=== PATIENT | male | born 1940 | race Caucasian/White ===

== ENCOUNTER → 2016-11-15 | Outpatient (CLI) | payer OTHER | LOC: BHFA 11:30 | PROVIDERS: ATTEND Internal Medicine Cardiovascular Disease | DX: I34.0 Nonrheumatic mitral (valve) insufficiency (principal) ==

== ENCOUNTER → 2016-11-25 | Outpatient (CLI) | payer OTHER | LOC: BHFA 14:45 | PROVIDERS: ATTEND Internal Medicine Cardiovascular Disease | DX: R42 Dizziness and giddiness (principal) ==

== ENCOUNTER 2017-02-28 14:30 | Emergency (ER) | payer OTHER ==
[2017-02-28 14:42] VITALS: TEMP 97.9
--- NOTE | 2017-02-28 15:56 | EDPHY ---
H & P Stated Complaint: On going weakness and dizziness, getting worse. Time Seen by Provider: 02/28/17 15:53 HPI/ROS: CHIEF COMPLAINT:Weakness, dizzy HISTORY OF PRESENT ILLNESS: The patient is an anticoagulated 76 y/o male with history of atrial fibrillation status post ablation complaining of weakness and dizziness. His dizziness is not new but seems to be worse recently. These symptoms have happened in the past--while hiking several years ago, but symptoms of decreased energy and dizziness improved after 20 minutes of hiking. One month ago he discontinued Propafenone and a prostate medication (name unknown) because of his dizziness, which began to improve. This dizziness begins after standing up and is associated with feeling off balance. The symptoms last around 2-3 minutes and he sits down when they begin. Delete On Tuesday, 2 days from now , he has an appointment with a parking lot manager at [facility]. Denies fever, chest pain, shortness of breath, vomiting, persistent diarrhea or blood in stool, recent illness or other pertinent symptoms. He has not been aware of atrial fibrillation or abnormal cardiac activity for the past couple of years. His ablation procedure was performed in 2005. REVIEW OF SYSTEMS: A ten point review of systems was performed and is negative with the exception of the items mentioned in the HPI. Right jaw weakness, not pain. Mild diarrhea. Past medical history: Atrial fibrillation Chronic weakness and dizziness. Fractured left clavicle Past surgical history: Ablation - 2005 C1 fusion C6-7 anterior discectomy and fusion Family history: Denies Social history: at bedside Lives in [place] Retired General Appearance: Alert. Vital signs reviewed. Blood pressure 90/63 at triage. Eyes: Pupils equal and round, no conjunctival injection, no discharge. Anicteric. ENT, Mouth: Mucous membranes are moist, no oropharyngeal erythema or edema. Neck: No lymphadenopathy, supple. Respiratory: Lungs are clear to auscultation; no wheezes, rales, or rhonchi. Cardiovascular: Irregularly irregular; no murmur, rub, or gallop. Gastrointestinal: Abdomen is soft and nontender, no masses or organomegaly, bowel sounds normal. Skin: Warm and dry, no rashes on exposed skin, normal color. Back: Nontender to palpation over the thoracolumbar spine. No CVAT. Extremities: No lower extremity edema, no calf tenderness or swelling. Neurological: Alert and oriented. Moving all four extremities easily and equally. DEVEN. EOMI. Facial expression symmetric. Tongue midline. Strength 5/5 in all major motor groups. Sensation intact to light touch over all 4 extremities. Psychiatric: Normal affect. - Personal History Current Tetanus Diphtheria and Acellular Pertussis (TDAP): Yes Tetanus Vaccine Date: 2014 - Medical/Surgical History Hx Asthma: No Hx Chronic Respiratory Disease: No Hx Diabetes: No Hx Cardiac Disease: Yes Hx Renal Disease: No Hx Cirrhosis: No Hx Alcoholism: No Hx HIV/AIDS: No Hx Splenectomy or Spleen Trauma: No Other PMH: Ablation - 2006. A - Fib. Chronic weakness and dizziness. - Social History Smoking Status: Former smoker Constitutional: Initial Vital Signs Temperature (C) 36.6 C 02/28/17 14:36 Heart Rate 95 02/28/17 14:36 Respiratory Rate 16 02/28/17 14:36 Blood Pressure 90/63 L 02/28/17 14:36 O2 Sat (%) 95 02/28/17 14:36 O2 Delivery Mode Room Air Allergies/Adverse Reactions: No Known Allergies Allergy (Unverified 11/09/09 12:25) Home Medications: Medication Instructions Recorded FISH OIL 1,000 MG SOFTGEL 11/09/09 Prozac 11/09/09 RYTHMOL 11/09/09 Statins 11/09/09 Vitamins And Minerals 11/09/09 Warfarin Sodium 02/28/17 Medical Decision Making - Diagnostics Imaging: I viewed and interpreted images myself ED Course/Re-evaluation: The patient is an anticoagulated 76 y/o male with a history of atrial fibrillation presenting with weakness. He is in atrial fibrillation, other than this his physical exam is normal. 1610: The 12 lead EKG was interpreted by myself as atrial fibrillation with a rate of 106. See hard copy and/or "tracemaster" electronic copy for interpretation. 1718: Patient's chest x-ray is negative for acute pulmonary disease. 9: Reassessed patient and discussed imaging findings. He is still feeling lightheaded and weak. Labs reviewed. Normal troponin, I doubt ACS. INR is 2.5. 1905: Consulted with Dr. Partida, parking lot manager, regarding the patient's symptoms. He will inform Dr. Delvalle, the patient's parking lot manager, and she will contact the patient. Patient is not interested in hospitalization. He is surprised to learn that he is in atrial fibrillation. His Rhythmol was stopped about a month ago and may need to be reinstituted. A fib in the ED does not show RVR. INR is 2.5. Electrolytes are normal. He is comfortable following up with his parking lot manager in [place] and has an appointment with a parking lot manager at [facility] next week. Danger signs reviewed with the patient and his . Repeat blood pressures show his lowest blood pressure since triage was 115/87 with the blood pressure at discharge of 05/03 over 75. His systolic pressure on arrival was 90. He states that his blood pressure is chronically on the low side. I do not find evidence of significant dehydration and not suspect blood loss. 191: Reassessed patient and discussed plan for an outpatient follow up with his parking lot manager. Return precautions provided; patient and his are comfortable with this plan. Differential Diagnosis: ED AFib differential - Data Points Laboratory Results: Laboratory Results 02/28/17 16:14 02/28/17 16:14 Departure - Departure Disposition: Home, Routine, Self-Care Clinical Impression: Atrial fibrillation Qualifiers: Atrial fibrillation type: unspecified Qualified Code(s): I48.91 - Unspecified atrial fibrillation Condition: Good Instructions: A-fib (Atrial Fibrillation) (ED) Additional Instructions: Dr. Delvalle, parking lot manager, will contact you regarding your symptoms and visit today. No medication changes or additions are recommended at this time. Keep your appointment at [facility] on . Return to the Emergency Department for fever, chest pain, shortness of breath, fainting, or other worsening of condition. Referrals: Lisa Smith MD [Primary Care Provider] - As per Instructions Carin Delvalle MD [Medical Doctor] - As per Instructions Report Scribed for: Mari Jimenez Report Scribed by: Sadia Gillis Date of Report: 02/28/17 Time of Report: 16:29 Physician Review and Approval Statement: 02/28/17 15:56 Portions of this note were transcribed by the medical insurance claims specialist. I, Dr. Mari Jimenez, personally performed the history, physical exam, and medical decision- making; and confirmed the accuracy of the information in the transcribed note.
--- NOTE | 2017-02-28 16:11 | CPEKG ---
Heart Rate: 106 RR Interval: 566 QRSD Interval: 108 QT Interval: 384 QTC Interval: 510 QRS [place]: -102 T Wave [place]: 9 EKG Severity - ABNORMAL ECG - EKG Impression: ATRIAL FIBRILLATION EKG Impression: LAD, CONSIDER LEFT ANTERIOR FASCICULAR BLOCK EKG Impression: LOW VOLTAGE IN FRONTAL LEADS Electronically Signed By: Germain Soriano 01-Mar-2017 15:43:07
[2017-02-28 16:27] LABS: % IMMATURE GRANULYOCYTES 0.2 % (0.0-1.1); ABSOLUTE IMMATURE GRANULOCYTES 0.01 10^3/uL (0.00-0.10); ADD DIFF? NO; ADD MORPH? NO; ADD SCAN? NO; ATYPICAL LYMPHOCYTE FLAG 10 (0-99); FRAGMENT RBC FLAG 0 (0-99); HEMATOCRIT 39.7 % (40.0-51.0); HEMOGLOBIN 14.1 g/dL (13.7-17.5); LEFT SHIFT FLG 0 (0-99); LIPEMIA HEMOLYSIS FLAG 90 (0-99); MEAN CELL HEMOGLOBIN 35.2 pg (27.9-34.1); MEAN CELL HEMOGLOBIN CONCENTR. 35.5 g/dL (32.4-36.7); MEAN PLATELET VOLUME 9.9 fL (8.7-11.7); PLATELET CLUMPS FLAG 0 (0-99); PLATELET COUNT 201 10^3/uL (150-400); RED BLOOD CELL COUNT 4.01 10^6/uL (4.40-6.38); RED CELL DISTRIBUTION WIDTH 13.5 % (11.5-15.2)
[2017-02-28 16:42] LABS: APTT 39.3 SEC (23.0-38.0)
[2017-02-28 16:46] LABS: ANION GAP 10 mEq/L (8-16); CARBON DIOXIDE 24 mEq/l (22-31); CHLORIDE 107 mEq/L (97-110); CREATININE 1.1 mg/dL (0.7-1.3); GLOMERULAR FILTRATION RATE > 60; GLUCOSE 116 mg/dL (70-100); POTASSIUM 4.1 mEq/L (3.5-5.2); SODIUM 141 mEq/L (134-144)
[2017-02-28 16:59] LABS: TROPONIN I < 0.012 ng/mL (0.000-0.034)
[2017-02-28 17:11] LABS: INR 2.52 (0.83-1.16); PROTIME(PATIENT) 27.4 SEC (12.0-15.0)
[2017-02-28 18:43] VITALS: RESP 16
[2017-02-28 19:24] VITALS: BP 130/75; PULSE 90; O2SAT 97
== END 2017-02-28 19:26 | disposition home or self-care (01) ==
DX: I48.91 Unspecified atrial fibrillation (principal); Z79.01 Long term (current) use of anticoagulants; Z87.891 Personal history of nicotine dependence

== ENCOUNTER 2017-03-07 12:52 | Inpatient (IN) | payer OTHER ==
[2017-03-07] MEDS ORDERED: NS 500 ML IV ONE (13:07)
[2017-03-07] MEDS ORDERED: fentaNYL 100 MCG/2 ML INJ IVP ONE (13:07)
[2017-03-07] MEDS ORDERED: MIDAZOLAM 2 MG/2 ML VIAL IVP ONE (13:07)
[2017-03-07] MEDS ORDERED: ATROPINE SULFATE 1 MG/10 ML SYR IVP ONE (13:07)
--- NOTE | 2017-03-07 13:31 | CPEKG ---
Heart Rate: 93 RR Interval: 645 QRSD Interval: 110 QT Interval: 404 QTC Interval: 503 QRS [place]: -109 T Wave [place]: 5 EKG Severity - ABNORMAL ECG - EKG Impression: ATRIAL FIBRILLATION EKG Impression: VENTRICULAR PREMATURE COMPLEX EKG Impression: LEFT ANTERIOR FASCICULAR BLOCK EKG Impression: LOW VOLTAGE IN FRONTAL LEADS EKG Impression: BASELINE ARTIFACT PRECLUDES ACCURATE INTERPRETATION Electronically Signed By: Ash Cox 09-Mar-2017 23:16:43
[2017-03-07 13:54] LABS: APTT 35.5 SEC (23.0-38.0); INR 2.09 (0.83-1.16); PROTIME(PATIENT) 23.5 SEC (12.0-15.0)
[2017-03-07 14:08] LABS: ANION GAP 12 mEq/L (8-16); CALCIUM 9.4 mg/dL (8.5-10.4); CARBON DIOXIDE 28 mEq/l (22-31); CHLORIDE 104 mEq/L (97-110); GLOMERULAR FILTRATION RATE > 60; GLUCOSE 86 mg/dL (70-100); MAGNESIUM 2.4 mg/dL (1.6-2.3); POTASSIUM 4.4 mEq/L (3.5-5.2); SODIUM 144 mEq/L (134-144)
[2017-03-07] MEDS ORDERED: PROPOFOL 200 MG/20 ML VIAL ONE ×2 (14:27→14:33)
[2017-03-07] MEDS ORDERED: LIDOCAINE 2% 5 ML SDV ONE (14:27)
--- NOTE | 2017-03-07 14:31 | PDHPUP ---
History & Physical Update H&P update statement: This history and physical update is based on an assessment of the patient which was completed after admission or registration (within 24 hours), but prior to the surgery/procedure. H&P update: H&P reviewed & patient examined, no change in patient's condition since H&P completed
--- NOTE | 2017-03-07 14:54 | PDANEPAE ---
ANE History of Present Illness shanthi/cv ANE Past Medical History - Cardiovascular History Hx Hypertension: Yes Hx Arrhythmias: Yes - Pulmonary History Hx COPD: No Hx Asthma/Reactive Airway Disease: Yes Hx Recent Upper Respiratory Infection: No Hx Oxygen in Use at Home: No Hx Sleep Apnea: No - Endocrine History Hx Diabetes: No ANE Review of Systems Review of Systems: - Exercise capacity METS (RN): 3 METS ANE Patient History - Allergies Allergies/Adverse Reactions: apixaban [From EliUshi] Allergy (Verified 03/07/17 13:42) - Home Medications Home Medications: Aspirin EC [Aspirin EC 81 mg (*)] 81 mg PO DAILY 03/07/17 [Last Taken 03/06/17] Atorvastatin Calcium [Lipitor 10 mg (*)] 10 mg PO DAILY@19 03/07/17 [Last Taken 03/06/17] Cholecalciferol Vit D3 [Vitamin D3 2000 units tab (OTC)] 2,000 units PO DAILY [Last Taken 03/06/17] FLUoxetine [Prozac 20 MG (*)] 20 mg PO DAILY 03/07/17 [Last Taken 03/06/17] Herbals/Supplements -Info Only 1 ea PO DAILY 03/07/17 [Last Taken Unknown] Metoprolol Tartrate [Lopressor 25 mg (*)] 25 mg PO BID 03/07/17 [Last Taken 06/18] Multivitamins [Multivitamin (*)] 1 each PO DAILY 03/07/17 [Last Taken 03/06/17] [place]-3 Fatty Acids [Fish Oil 1000 mg (*)] 1,000 mg PO DAILY 03/07/17 [Last Taken 03/06/17] Ubidecarenone/Vit E Acet [Co Q-10 100 mg Softgel] 1 each PO DAILY 03/07/17 [ Last Taken 03/06/17] Warfarin Sodium [Coumadin 5MG (*)] 2.5 mg PO SUTUTHSA@1600 03/07/17 [Last Taken 03/06/17] Warfarin Sodium [Coumadin 5MG (*)] 5 mg PO MWF@1600 03/07/17 [Last Taken ] - Anes Hx Anes Hx: no prior problems - Smoking Hx Smoking Status: Former smoker ANE Labs/Vital Signs - Labs Result Diagrams: 03/07/17 13:38 - Vital Signs Height: 180 cm Weight: 83.5 kg ANE Physical Exam - Airway Mallampati Score: Class 2 Mouth exam: normal dental/mouth exam - Pulmonary Pulmonary: no respiratory distress - Cardiovascular Cardiovascular: irregularly irregular - ASA Status ASA Status: II ANE Anesthesia Plan Anesthesia Plan: GA with mask Total IV Anesthesia: Yes
--- NOTE | 2017-03-07 14:55 | POSTANESTH ---
Post Anesthetic Evaluation Cardiovascular Status: Normal, Stable Respiratory Status: Normal, Stable Level of Consciousness/Mental Status: Can Participate in Eval Pain Control: Adequate, Prn Tx Ordered Nausea/Vomiting Control: Adequate, Prn Tx Ordered Complications Possibly Related to Anesthesia: None Noted
--- NOTE | 2017-03-07 14:55 | CPEKG ---
Heart Rate: 43 RR Interval: 1395 P-R Interval: 172 QRSD Interval: 106 QT Interval: 452 QTC Interval: 383 P [place]: 80 QRS [place]: 260 T Wave [place]: -88 EKG Severity - ABNORMAL ECG - EKG Impression: SINUS BRADYCARDIA EKG Impression: MULTIPLE ATRIAL PREMATURE COMPLEXES EKG Impression: LEFT ANTERIOR FASCICULAR BLOCK EKG Impression: LOW VOLTAGE IN FRONTAL LEADS EKG Impression: ABNORMAL T, CONSIDER ISCHEMIA, ANT-LAT LEADS Electronically Signed By: Ash Cox 09-Mar-2017 23:16:11
[2017-03-07] MEDS: ATORVASTATIN CALCIUM 10 MG TAB PO SCH (20:13)
[2017-03-07] MEDS: WARFARIN SODIUM 5 MG TAB PO SCH (20:13)
--- NOTE | 2017-03-08 08:55 | CPEKG ---
Heart Rate: 63 RR Interval: 952 P-R Interval: 176 QRSD Interval: 114 QT Interval: 416 QTC Interval: 426 P [place]: 65 QRS [place]: 240 T Wave [place]: 205 EKG Severity - ABNORMAL ECG - EKG Impression: SINUS RHYTHM EKG Impression: NONSPECIFIC IVCD WITH LAD EKG Impression: LOW VOLTAGE IN FRONTAL LEADS Electronically Signed By: Ash Cox 09-Mar-2017 23:15:33
[2017-03-08] MEDS ORDERED: ASPIRIN EC 81 MG TAB PO SCH (09:00)
[2017-03-08] MEDS ORDERED: DOFETILIDE 0.5 MG CAP PO SCH (09:00)
[2017-03-08 09:27] LABS: INR 2.08 (0.83-1.16); PROTIME(PATIENT) 23.4 SEC (12.0-15.0)
[2017-03-08 09:32] LABS: ANION GAP 9 mEq/L (8-16); CARBON DIOXIDE 28 mEq/l (22-31); CHLORIDE 104 mEq/L (97-110); GLOMERULAR FILTRATION RATE > 60; GLUCOSE 113 mg/dL (70-100); POTASSIUM 4.5 mEq/L (3.5-5.2); SODIUM 141 mEq/L (134-144)
[2017-03-08] MEDS: MULTIVITAMINS 1 EACH TAB PO SCH (09:36)
[2017-03-08] MEDS: CHOLECALCIFEROL VIT D3 2,000 UNITS TAB/CAP PO SCH (09:36)
[2017-03-08] MEDS: OMEGA-3 FATTY ACIDS 1,000 MG CAP PO SCH (09:37)
[2017-03-08] MEDS: FLUoxetine 20 MG CAP PO SCH (09:37)
[2017-03-08 09:50] LABS: MAGNESIUM 2.3 mg/dL (1.6-2.3)
--- NOTE | 2017-03-08 10:12 | PDCARPN ---
Cardiology Progress Note Chief Complaint: Atrial Fibrillation Assessment/Plan: Assessment: Atrial Fibrillation. DCCV successfully 03/07/[address] Carlos Manzo. He is a patient of Dr Carin Delvalle at [facility]. She ordered Tikosyn Load after Cardioversioon. Due to his Heart rate in the 40's the Tikosyn was not started post DCCV 03/07/17. He will initiate Tykosyn at 250 mcg BID today 9:30 am. Metoprolol was stopped. AM EKG shows QTC 425. Cr 1.0. 11:30 Checked in on Sebastian. He is tolerating the Tikosyn well with no dizziness, lightheadedness, or SOB. He was cautioned to get up from bed to standing slowly with this new med on board. He understands these instructions. Tele shows RSR. Heart Rate 60's. 2:00 pm Sebastian continues to tolerate the medications well. Noon EKG shows RSR with rare PAC. Rate 62, QTc 459. Plan: Continue to monitor EKG-- QTc, Kidney function. Continue with Cautious Tikosyn Load. 03/08/17 14:15 Subjective: I am not feeling any different with the new medication (Tikosyn). Reviewed/Discussed With: hospitalist, multidisciplinary team Time Spent With Patient: 30 minutes Objective: Vital Signs (8 Hrs) Temp Pulse Resp BP Pulse Ox 03/08/17 08:00 36.8 C 58 L 18 126/81 H 93 03/08/17 04:00 36.6 C 57 L 16 125/83 H 92 Intake/Output (24 Hrs) 03/07/17 03/08/17 03/09/17 05:59 05:59 05:59 Intake Total 860 Balance 860 Intake: Oral (ml) 850 IV Intake (ml) 10 Other: Weight 83.5 kg Number of Voids Toilet 2 Urinal 1 Result Diagrams: 03/08/17 08:53 - Physical Exam Constitutional: no apparent distress Cardiovascular: regular rate and rhythm, no murmurs, no rubs, no gallops Peripheral Pulses: 2+: dorsalis-pedis (R), dorsalis-pedis (L) Respiratory: clear to auscultate bilat, no crackles, no wheezes Skin: warm, no edema Neurologic: AAOx3 Psychiatric: cooperative, interactive ICD10 Worksheet Patient Problems: Problems Problem Status Onset Atrial fibrillation Acute
[2017-03-08] MEDS: DOFETILIDE 0.25 MG CAP PO SCH ×2 (10:13→21:02)
--- NOTE | 2017-03-08 11:46 | ASMTCMCOM ---
CM Note CM Note Notes: 03/08/2017 Case Management Note Spoke w/RN and reviewed chart. No Case Management d/c needs identified d/t pt age, marital status and activity levels prior to admission. There are no PT or OT evals ordered. Case Management d/c poc: Home independent with follow up as directed. Case Management available if needs change. Date Signed: 03/08/2017 11:46 AM Electronically Signed By:Page Abernathy RN
--- NOTE | 2017-03-08 12:23 | CPEKG ---
Heart Rate: 62 RR Interval: 968 P-R Interval: 172 QRSD Interval: 106 QT Interval: 452 QTC Interval: 459 P [place]: 61 QRS [place]: -105 T Wave [place]: 259 EKG Severity - ABNORMAL ECG - EKG Impression: SINUS RHYTHM EKG Impression: ATRIAL PREMATURE COMPLEX EKG Impression: INCOMPLETE RBBB AND LAFB EKG Impression: LOW VOLTAGE IN FRONTAL LEADS EKG Impression: NONSPECIFIC T ABNORMALITIES, LATERAL LEADS Electronically Signed By: Ash Cox 09-Mar-2017 23:15:26
[2017-03-08] MEDS: ATORVASTATIN CALCIUM 10 MG TAB PO SCH (20:26)
[2017-03-08] MEDS: WARFARIN SODIUM 5 MG TAB PO SCH (20:28)
[2017-03-08] MEDS: ASPIRIN EC 81 MG TAB PO SCH (20:30)
--- NOTE | 2017-03-08 22:58 | CPEKG ---
Heart Rate: 55 RR Interval: 1091 P-R Interval: 176 QRSD Interval: 124 QT Interval: 464 QTC Interval: 444 P [place]: 63 QRS [place]: -100 T Wave [place]: 245 EKG Severity - ABNORMAL ECG - EKG Impression: SINUS RHYTHM EKG Impression: RBBB AND LAFB Electronically Signed By: Ash Cox 09-Mar-2017 23:15:18
[2017-03-09] MEDS: MULTIVITAMINS 1 EACH TAB PO SCH (08:44)
[2017-03-09] MEDS: FLUoxetine 20 MG CAP PO SCH (08:44)
[2017-03-09] MEDS: CHOLECALCIFEROL VIT D3 2,000 UNITS TAB/CAP PO SCH (08:44)
[2017-03-09] MEDS: OMEGA-3 FATTY ACIDS 1,000 MG CAP PO SCH (08:44)
[2017-03-09] MEDS ORDERED: VIT E ACET PO SCH (09:00)
[2017-03-09] MEDS ORDERED: UBIDECARENONE PO SCH (09:00)
[2017-03-09] MEDS: DOFETILIDE 0.25 MG CAP PO SCH ×2 (09:19→20:59)
[2017-03-09] MEDS: VIT E ACET PO SCH (09:20)
[2017-03-09] MEDS: UBIDECARENONE PO SCH (09:20)
--- NOTE | 2017-03-09 10:03 | PDCARPN ---
Cardiology Progress Note Assessment/Plan: Assessment: Atrial Fibrillation. DCCV successfully 03/07/[address] Carlos Manzo. He is a patient of Dr Carin Delvalle at [facility]. She ordered Tikosyn Load after Cardioversioon. Due to his Heart rate in the 40's the Tikosyn was not started post DCCV 03/07/17. He will initiate Tykosyn at 250 mcg BID today 9:30 am. Metoprolol was stopped. AM EKG shows QTC 425. Cr 1.0. 11:30 Checked in on Sebastian. He is tolerating the Tikosyn well with no dizziness, lightheadedness, or SOB. He was cautioned to get up from bed to standing slowly with this new med on board. He understands these instructions. Tele shows RSR. Heart Rate 60's. 2:00 pm Sebastian continues to tolerate the medications well. Noon EKG shows RSR with rare PAC. Rate 62, QTc 459. Plan: Continue to monitor EKG-- QTc, Kidney function. Continue with Cautious Tikosyn Load. 03/08/17 14:15 03/09/17 09:59 History of atrial fib. His rhythm today is RSR with rate 55 to 60. He states he s feeling better today. He slept well (except for the wake-ups). EKG -- QTC has remained stable. Today pre-Tikosyn QTc 459. Encouraged to be up walking today. He is eager to walk in the [place]. Objective: Vital Signs (8 Hrs) Temp Pulse Resp BP Pulse Ox 03/09/17 04:00 36.8 C 56 L 16 132/73 H 90 L Intake/Output (24 Hrs) 03/08/17 03/09/17 03/10/17 05:59 05:59 05:59 Intake Total 860 1610 Balance 860 1610 Intake: Oral (ml) 850 1600 IV Intake (ml) 10 10 Other: Weight 83.5 kg Number of Voids Toilet 2 2 Urinal 1 Result Diagrams: 03/08/17 08:53 - Physical Exam Cardiovascular: regular rate and rhythm, no murmurs, no rubs, no gallops, systolic murmur Peripheral Pulses: 2+: dorsalis-pedis (R), dorsalis-pedis (L) Respiratory: clear to auscultate bilat, no crackles, no wheezes Neurologic: AAOx3 Psychiatric: cooperative, interactive ICD10 Worksheet Patient Problems: Problems Problem Status Onset Atrial fibrillation Acute
--- NOTE | 2017-03-09 10:37 | CPEKG ---
Heart Rate: 58 RR Interval: 1034 P-R Interval: 164 QRSD Interval: 112 QT Interval: 448 QTC Interval: 441 P [place]: 59 QRS [place]: 245 T Wave [place]: 229 EKG Severity - ABNORMAL ECG - EKG Impression: SINUS RHYTHM EKG Impression: NONSPECIFIC IVCD WITH LAD EKG Impression: LOW VOLTAGE IN FRONTAL LEADS Electronically Signed By: Ash Cox 09-Mar-2017 23:15:07
[2017-03-09] MEDS: WARFARIN SODIUM 5 MG TAB PO SCH (15:02)
[2017-03-09] MEDS: ATORVASTATIN CALCIUM 10 MG TAB PO SCH (18:13)
[2017-03-09] MEDS: ASPIRIN EC 81 MG TAB PO SCH (20:59)
--- NOTE | 2017-03-09 23:36 | CPEKG ---
Heart Rate: 55 RR Interval: 1091 P-R Interval: 184 QRSD Interval: 112 QT Interval: 460 QTC Interval: 440 P [place]: 63 QRS [place]: 256 T Wave [place]: -81 EKG Severity - ABNORMAL ECG - EKG Impression: SINUS RHYTHM EKG Impression: LEFT ANTERIOR FASCICULAR BLOCK EKG Impression: LOW VOLTAGE IN FRONTAL LEADS Electronically Signed By: Chela Yang 10-Mar-2017 06:42:45
[2017-03-10] MEDS ORDERED: DOFETILIDE 0.25 MG CAP PO SCH
[2017-03-10 07:47] VITALS: O2SAT 92
[2017-03-10] MEDS: FLUoxetine 20 MG CAP PO SCH (10:39)
[2017-03-10] MEDS: CHOLECALCIFEROL VIT D3 2,000 UNITS TAB/CAP PO SCH (10:39)
[2017-03-10] MEDS: OMEGA-3 FATTY ACIDS 1,000 MG CAP PO SCH (10:39)
[2017-03-10] MEDS: DOFETILIDE 0.25 MG CAP PO SCH (10:39)
[2017-03-10] MEDS: MULTIVITAMINS 1 EACH TAB PO SCH (10:39)
[2017-03-10] MEDS: VIT E ACET PO SCH (10:40)
[2017-03-10] MEDS: UBIDECARENONE PO SCH (10:40)
[2017-03-10 11:15] VITALS: PULSE 60; RESP 16; TEMP 97.2
--- NOTE | 2017-03-10 11:32 | CPEKG ---
Heart Rate: 59 RR Interval: 1017 P-R Interval: 176 QRSD Interval: 106 QT Interval: 448 QTC Interval: 444 P [place]: 62 QRS [place]: 257 T Wave [place]: 256 EKG Severity - ABNORMAL ECG - EKG Impression: SINUS RHYTHM EKG Impression: LEFT ANTERIOR FASCICULAR BLOCK EKG Impression: LOW VOLTAGE IN FRONTAL LEADS EKG Impression: PROBABLE RIGHT VENTRICULAR HYPERTROPHY EKG Impression: ABNORMAL T, CONSIDER ISCHEMIA, ANT-LAT LEADS EKG Impression: CONSIDER SEPTAL HYPERTROPHY ALSO Electronically Signed By: Ash Cox 11-Mar-2017 20:52:43
[2017-03-10 11:47] VITALS: BP 140/96
[2017-03-10] MEDS: WARFARIN SODIUM 5 MG TAB PO SCH (15:27)
--- NOTE | 2017-03-10 15:34 | PDCARPN ---
Cardiology Progress Note Assessment/Plan: Assessment: Atrial Fibrillation. DCCV successfully 03/07/[address] Carlos Manzo. He is a patient of Dr Carin Delvalle at [facility]. She ordered Tikosyn Load after Cardioversioon. Due to his Heart rate in the 40's the Tikosyn was not started post DCCV 03/07/17. He will initiate Tykosyn at 250 mcg BID today 9:30 am. Metoprolol was stopped. AM EKG shows QTC 425. Cr 1.0. 11:30 Checked in on Sebastian. He is tolerating the Tikosyn well with no dizziness, lightheadedness, or SOB. He was cautioned to get up from bed to standing slowly with this new med on board. He understands these instructions. Tele shows RSR. Heart Rate 60's. 2:00 pm Sebastian continues to tolerate the medications well. Noon EKG shows RSR with rare PAC. Rate 62, QTc 459. Plan: Continue to monitor EKG-- QTc, Kidney function. Continue with Cautious Tikosyn Load. 03/08/17 14:15 03/09/17 09:59 History of atrial fib. His rhythm today is RSR with rate 55 to 60. He states he s feeling better today. He slept well (except for the wake-ups). EKG -- QTC has remained stable. Today pre-Tikosyn QTc 459. Encouraged to be up walking today. He is eager to walk in the [place]. 03/10/17 15:28 He has done well with the Tikosyn load. This morning BP elevated and came back down to 142/96. He has been up ambulating with no dizziness. EKG shows sinus rhythm with Left Anterior Fasicular block. QTc has been stable at near 445. Reviewed findings with Dr Delvalle. She feels comfortable to discharge him. He will follow up with her in one week. 7 day Rx from hospital given along with Rx for pharmacy. Subjective: Feel good today. No dizziness. Reviewed/Discussed With: family, multidisciplinary team (Carin Delvalle MD) Time Spent With Patient: 60 minutes Objective: Vital Signs (8 Hrs) Temp Pulse Resp BP Pulse Ox 03/10/17 11:46 140/96 H 03/10/17 11:26 36.2 C 60 16 175/112 H 92 03/10/17 11:14 36.2 C 60 16 175/112 H 92 03/10/17 07:44 37.0 C 58 L 15 156/103 H 92 Intake/Output (24 Hrs) 03/09/17 03/10/17 03/11/17 05:59 05:59 05:59 Intake Total 1610 810 Balance 1610 810 Intake: Oral (ml) 1600 800 IV Intake (ml) 10 10 Other: Intake Quantity Yes Sufficient Number of Voids Toilet 2 2 Result Diagrams: 03/08/17 08:53 - Physical Exam Cardiovascular: regular rate and rhythm, no murmurs, no rubs Respiratory: clear to auscultate bilat, no crackles, no wheezes Skin: warm, no edema Neurologic: AAOx3 Psychiatric: cooperative, interactive ICD10 Worksheet Patient Problems: Problems Problem Status Onset Atrial fibrillation Acute
--- NOTE | 2017-03-11 03:52 | GDS ---
[f rep st] DISCHARGE SUMMARY ADMIT DIAGNOSES: 1. Atrial fibrillation. 2. Planned Tikosyn load after cardioversion. DISCHARGE DIAGNOSES: Successful atrial fibrillation direct-current cardioversion on 03/07/[address] Alejandra Manzo. HOSPITAL COURSE: He is a patient of Dr. Carin Delvalle with plans for Tikosyn loading after cardioversio n. On the day of cardioversion, his heart rates were in the 40s. It was decided to delay initiation of Tikosyn until the following morning with hopes his heart rate could better tolerate the initiatio n of the antiarrhythmic medication. On 03/08/2017, his heart rate was at 60, and Tikosyn 250 mcg was initiated to be given twice daily. First dose was given at 9:30 a.m. His metoprolol was stopped. Morning EKG showed QTc of 425 and a creatinine of 1.0. He did tolerate the Tikosyn loading with no d izziness, lightheadedness, or shortness of breath. His telemetry showed regular sinus rhythm with ra guerline in the 60s, at times dipping into the mid 50s. He had no episodes of reverting back to atrial fi brillation. He had an occasional PAC noted. On day of discharge, he is feeling well. His blood pre ssure was a bit elevated compared to previous pressures. His EKGs have remained stable with QTc in t he 445 range. EKG findings have been reviewed continuously with Dr. Delvalle. His EKG does show a left anterior fascicular block and at times right bundle branch block. He will be discharged home with 1 week's worth of Tikosyn, along with a prescription for long-term use of Tikosyn 250 mcg twice daily. At this time, he currently is stable. ALLERGIES: He is allergic to apixaban. DISCHARGE MEDICATIONS: He will go home on: 1. Vitamin D3 at 2000 units daily. 2. Multivitamin 1 daily. 3. Herbal supplements 1 daily. 4. Co-Q 10 one daily. 5. Lopressor has been discontinued. 6. Prozac 20 mg daily. 7. Lipitor 10 mg daily. 8. Aspirin 81 mg daily. 9. Coumadin 2.5 mg on Tuesday, Tuesday, , Tuesday and 5 mg Tuesday, Tuesday, Tuesday. He wi ll [facility]. 10. Fish oil 1000 mg daily. 11. Tikosyn 250 mcg twice daily, which is equivalent to 0.25 mg twice daily. PHYSICAL EXAMINATION: VITAL SIGNS: On day of discharge, heart rate regular with occasional PAC note d. CARDIOVASCULAR: Heart rate regular with no murmurs, rubs, or gallops. RESPIRATORY: Lungs sound s are clear to auscultation. No wheezes, rales, or rhonchi. EXTREMITIES: No peripheral edema. DISCHARGE PLAN: 1. He will follow up with Dr. Delvalle in 1 week. 2. One week's worth of Tikosyn has been given to him at discharge to be taken twice daily with bing en instructions. A prescription was also provided to take to his pharmacy for long-term refilling. At this time, he currently is stable for discharge. /[id number]/MODL
--- NOTE | 2017-03-11 16:54 | ASDISCHSUM ---
Discharge Information Plan Status:Home with No Needs Medically Cleared to Leave:03/09/2017 Discharge Date:03/10/2017 04:29 PM CM D/C Disposition:Home, Routine, Self-Care ADT D/C Disposition:Home, Routine, Self-Care Projected Discharge Date:03/10/2017 12:00 AM Transportation at D/C:Family Discharge Delay Reason: Follow-Up Date:03/10/2017 12:00 AM Discharge Slot: Final Diagnosis: Placement Information Patient Contact Information Contact Name:MEGAN Relationship: Address:[address] City:[place] Alternate Phone: [facility]/Zip Code:[place] [address] Email: Financial Information Financial Class: Primary Plan Desc:MEDICARE INPATIENT Primary Plan Number:[id number] Secondary Plan Desc:[facility] [employer] Secondary Plan Number:[id number] Assessment Information BC CM Progress Note CM Note CM Note Notes: 03/08/2017 Case Management Note Spoke w/RN and reviewed chart. No Case Management d/c needs identified d/t pt age, marital status and activity levels prior to admission. There are no PT or OT evals ordered. Case Management d/c poc: Home independent with follow up as directed. Case Management available if needs change. Date Signed: 03/08/2017 11:46 AM Electronically Signed By:Page Abernathy RN Intervention Information Intervention Type:*Incorrect Registration Date of Service:03/08/2017 11:42 AM Patient Type:Observation Staff Member:AR Starkey Courtney Hours: Discipline: Severity: Comment:
== END 2017-03-10 16:29 | disposition home or self-care (01) | DRG 310 ==
LOC: FCATH 12:52 → F2W 15:21 → OBSVTOIN 15:39 → F2W 16:15
PROVIDERS: ADMIT Internal Medicine Cardiovascular Disease; ATTEND Internal Medicine Cardiovascular Disease
PROC: 5A2204Z Restoration of Cardiac Rhythm, Single (ICD-10-PCS; principal; 2017-03-07)
PROC: B245ZZ4 Ultrasonography of Left Heart, Transesophageal (ICD-10-PCS; principal; 2017-03-07)
DX: I48.0 Paroxysmal atrial fibrillation (principal); I34.0 Nonrheumatic mitral (valve) insufficiency; G47.34 Idiopathic sleep related nonobstructive alveolar hypoventilation; I25.10 Atherosclerotic heart disease of native coronary artery without angina pectoris; I77.9 Disorder of arteries and arterioles, unspecified; I10 Essential (primary) hypertension; Z87.891 Personal history of nicotine dependence
CPT/HCPCS: J0461; J2704

== ENCOUNTER → 2017-08-02 | Outpatient (CLI) | payer OTHER | LOC: BHFA 13:30 | PROVIDERS: ATTEND Internal Medicine Cardiovascular Disease | DX: I48.0 Paroxysmal atrial fibrillation (principal) ==

== ENCOUNTER → 2017-08-26 | Outpatient (CLI) | payer OTHER | LOC: BHFA 08:30 | PROVIDERS: ATTEND Internal Medicine Cardiovascular Disease | DX: I48.91 Unspecified atrial fibrillation (principal); I34.0 Nonrheumatic mitral (valve) insufficiency; G47.34 Idiopathic sleep related nonobstructive alveolar hypoventilation; I25.10 Atherosclerotic heart disease of native coronary artery without angina pectoris; I77.9 Disorder of arteries and arterioles, unspecified | CPT/HCPCS: 78452; 93017; A9500; J2785 ==

== ENCOUNTER → 2018-03-01 | Outpatient (CLI) | payer OTHER | LOC: BHFA 10:45 | PROVIDERS: ATTEND Internal Medicine Cardiovascular Disease | DX: I48.91 Unspecified atrial fibrillation (principal); I34.0 Nonrheumatic mitral (valve) insufficiency; I25.10 Atherosclerotic heart disease of native coronary artery without angina pectoris ==

== ENCOUNTER → 2018-03-23 | Outpatient (CLI) | payer OTHER | LOC: BHFA 12:45 | PROVIDERS: ATTEND Internal Medicine Cardiovascular Disease | DX: I48.0 Paroxysmal atrial fibrillation (principal); I10 Essential (primary) hypertension ==

== ENCOUNTER 2018-08-13 15:24 | Observation (INO) | payer OTHER ==
[2018-08-13 15:56] LABS: PLATELET COUNT 187 10^3/uL (150-400)
[2018-08-13 16:35] LABS: INR 2.63 (0.83-1.16); PROTIME(PATIENT) 26.8 SEC (12.0-15.0)
--- NOTE | 2018-08-13 17:18 | EDPHY ---
H & P Stated Complaint: Confusion and sudden weakness while hiking. Time Seen by Provider: 08/13/18 15:35 HPI/ROS: Chief complaint: Weakness, confusion History of present illness: This is a 78-year-old male who presents to the emergency department for evaluation of weakness and confusion. Patient was out hiking with his friends today. Apparently he became weak during the hike and had to sit down. When his friends returned to check on him they felt he was confused. He was slow to respond. On my evaluation patient states he remembers the event. He does state he was fatigued, he does remember his friends asking him questions, he was having a hard time answering them because he was fatigued. At this time he feels well with no specific complaints. He denies headache, chest pain, trouble breathing, pain or swelling in the legs, fever or cold symptoms. Review of systems: A 10 point review of systems was obtained and other than described above was negative - Personal History Current Tetanus Diphtheria and Acellular Pertussis (TDAP): Yes Tetanus Vaccine Date: 2014 - Medical/Surgical History Hx Asthma: No Hx Chronic Respiratory Disease: No Hx Diabetes: No Hx Cardiac Disease: Yes Hx Renal Disease: No Hx Cirrhosis: No Hx Alcoholism: No Hx HIV/AIDS: No Hx Splenectomy or Spleen Trauma: No Other PMH: Ablation - 2006. A - Fib. Chronic weakness and dizziness. FX -C1. Fusion -C7 - Social History Smoking Status: Former smoker - Physical Exam Exam: General Appearance: Alert, nontoxic. Eyes: Pupils equal and round no pallor or injection. ENT, Mouth: Mucous membranes moist. Respiratory: There are no retractions, lungs are clear to auscultation. Cardiovascular: Regular rate and rhythm. Gastrointestinal: Abdomen is soft and non tender, no masses, bowel sounds normal. Neurological: Alert and oriented x4. Cranial nerves 2-12 grossly intact. Strength and sensation intact and symmetrical. No pronator drift. Skin: Warm and dry, no rashes. Musculoskeletal: Neck is supple non tender. Extremities are symmetrical, full range of motion. Psychiatric: Patient is oriented X 3, there is no agitation. Constitutional: Initial Vital Signs Temperature (C) 36.9 C 08/13/18 15:26 Heart Rate 64 08/13/18 15:26 Respiratory Rate 16 08/13/18 15:26 Blood Pressure 137/88 H 08/13/18 15:26 O2 Sat (%) 94 08/13/18 15:26 O2 Delivery Mode Room Air Allergies/Adverse Reactions: apixaban [From Eliquis] Allergy (Verified 03/07/17 13:42) Home Medications: Medication Instructions Recorded Aspirin EC [Aspirin EC 81 mg (*)] 81 mg PO DAILY 03/07/17 Atorvastatin Calcium [Lipitor 10 10 mg PO DAILY@19 03/07/17 mg (*)] Cholecalciferol Vit D3 [Vitamin D3 2,000 units PO DAILY 03/07/17 2000 units tab (OTC)] FLUoxetine [Prozac 20 MG (*)] 20 mg PO DAILY 03/07/17 Herbals/Supplements -Info Only 1 ea PO DAILY 03/07/17 Multivitamins [Multivitamin (*)] 1 each PO DAILY 03/07/17 [place]-3 Fatty Acids [Fish Oil 1000 1,000 mg PO DAILY 03/07/17 mg (*)] Ubidecarenone/Vit E Acet [Co Q-10 1 each PO DAILY 03/07/17 100 mg Softgel] Warfarin Sodium [Coumadin 5MG (*)] 2.5 mg PO SUTUTHSA@1600 03/07/17 Warfarin Sodium [Coumadin 5MG (*)] 5 mg PO MWF@1600 03/07/17 Dofetilide [Tikosyn 0.25 MG (*)] 0.25 mg PO BID #60 cap 03/10/17 Medical Decision Making ED Course/Re-evaluation: Patient is seen in conjunction with my secondary supervising physician Dr. Ricardo Griffin. Patient presents to the emergency department for evaluation of fatigue and reported history of confusion. On my evaluation he is nontoxic. Vital signs are stable. He has no complaints. Evaluation is unremarkable. I am concerned with his presentation as it is unclear as to the exact cause of this, I have discussed the multiple possible etiologies with him. He has also spoken with my attending physician Dr. Griffin. He has agreed to be admitted for further evaluation and care. He is admitted to Dr. Zach Rodriguez. Differential Diagnosis: Included but not limited cardiac dysrhythmia, ACS, dehydration, electrolyte disturbance, TIA, doubtful CVA - Data Points Laboratory Results: Laboratory Results 08/13/18 15:40 08/13/18 16:08 08/13/18 08/13/18 08/13/18 16:08 16:08 15:43 WBC RBC Hgb Hct MCV MCH MCHC RDW Plt Count MPV Neut % (Auto) Lymph % (Auto) [place] % (Auto) Eos % (Auto) Baso % (Auto) Nucleat RBC Rel Count Absolute Neuts (auto) Absolute Lymphs (auto) Absolute Monos (auto) Absolute Eos (auto) Absolute Basos (auto) Absolute Nucleated RBC Immature Gran % Immature Gran # PT 26.8 SEC H SEC (12.0-15.0) INR 2.63 H (0.83-1.16) APTT 39.2 SEC H SEC (23.0-38.0) Sodium 138 mEq/L mEq/L (135-145) Potassium 4.5 mEq/L mEq/L (3.5-5.2) Chloride 106 mEq/L mEq/L (97-110) Carbon Dioxide 25 mEq/l mEq/l (22-31) Anion Gap 7 mEq/L mEq/L (6-14) BUN 22 mg/dL mg/dL (7-23) Creatinine 1.1 mg/dL mg/dL (0.7-1.3) Estimated GFR > 60 Glucose 89 mg/dL mg/dL (70-100) Calcium 8.8 mg/dL mg/dL (8.5-10.4) POC Troponin I 0.00 ng/mL ng/mL (0.00-0.08) 08/13/18 08/13/18 08/13/18 15:40 15:40 15:40 WBC 7.32 10^3/uL 10^3/uL (3.80-9.50) RBC 3.86 10^6/uL L 10^6/uL (4.40-6.38) Hgb 13.1 g/dL L g/dL (13.7-17.5) Hct 37.9 % L % (40.0-51.0) MCV 98.2 fL fL (81.5-99.8) MCH 33.9 pg pg (27.9-34.1) MCHC 34.6 g/dL g/dL (32.4-36.7) RDW 13.5 % % (11.5-15.2) Plt Count 187 10^3/uL 10^3/uL (150-400) MPV 9.9 fL fL (8.7-11.7) Neut % (Auto) 76.2 % H % (39.3-74.2) Lymph % (Auto) 12.0 % L % (15.0-45.0) [place] % (Auto) 8.6 % % (4.5-13.0) Eos % (Auto) 2.5 % % (0.6-7.6) Baso % (Auto) 0.4 % % (0.3-1.7) Nucleat RBC Rel Count 0.0 % % (0.0-0.2) Absolute Neuts (auto) 5.58 10^3/uL 10^3/uL (1.70-6.50) Absolute Lymphs (auto) 0.88 10^3/uL L 10^3/uL (1.00-3.00) Absolute Monos (auto) 0.63 10^3/uL 10^3/uL (0.30-0.80) Absolute Eos (auto) 0.18 10^3/uL 10^3/uL (0.03-0.40) Absolute Basos (auto) 0.03 10^3/uL 10^3/uL (0.02-0.10) Absolute Nucleated RBC 0.00 10^3/uL 10^3/uL (0-0.01) Immature Gran % 0.3 % % (0.0-1.1) Immature Gran # 0.02 10^3/uL 10^3/uL (0.00-0.10) PT INR APTT REJ Sodium REJ Potassium REJ Chloride REJ Carbon Dioxide REJ Anion Gap REJ BUN REJ Creatinine REJ Estimated GFR REJ Glucose REJ Calcium REJ POC Troponin I Point of Care Test Results: Chemistry 08/13/18 15:43 POC Troponin I 0.00 ng/mL ng/mL (0.00-0.08) Departure - Departure Disposition: [facility] Acute Clinical Impression: Weakness, Confusion Condition: Fair
[2018-08-13] MEDS ORDERED: ONDANSETRON DISINTEGRATING 4 MG TAB PO PRN (17:48)
[2018-08-13] MEDS ORDERED: ACETAMINOPHEN 325 MG TAB PO PRN (17:48)
[2018-08-13] MEDS ORDERED: ONDANSETRON 4 MG/2 ML VIAL IVP PRN (17:48)
[2018-08-13] MEDS ORDERED: HYDROCODONE/APAP 5/325 TAB PO PRN (17:58)
[2018-08-13] MEDS ORDERED: oxyCODONE IR 5 MG TAB PO PRN (17:58)
--- NOTE | 2018-08-13 20:30 | PDGENHP ---
History and Physical - Chief Complaint weakness/lightheaded - History of Present Illness 78 yo M with PMH of a fib, MR and CAD presenting after hiking today and having an episode of feeling very weak and lightheaded and needing to sit down. He notes that he generally is able to hike and exercise without these sxs, although in the past, and particularly when he was first diagnosed with a fib, he has had similar sxs while in a fib. He notes he had no chest pain or palpitations with this episode, though he typically does not have those with his a fib. His sxs did improve after sitting for a while and he currently feels totally normal. He has not had recent illness or other changes in his health. He has not had any recent changes in his medications, he is on tikosyn and warfari. History Information - Allergies/Home Medication List Allergies/Adverse Reactions: apixaban [From Eliquis] Allergy (Verified 03/07/17 13:42) Home Medications: Aspirin EC [Aspirin EC 81 mg (*)] 81 mg PO HS 03/07/17 [Last Taken 08/12/18] Atorvastatin Calcium [Lipitor 10 mg (*)] 10 mg PO HS 03/07/17 [Last Taken ] Cholecalciferol Vit D3 [Vitamin D3 2000 units tab (OTC)] 2,000 units PO DAILY [Last Taken 08/13/18] FLUoxetine [Prozac 20 MG (*)] 20 mg PO DAILY@1300 03/07/17 [Last Taken 08/12/18] Herbals/Supplements -Info Only 1 ea PO DAILY 03/07/17 [Last Taken 08/13/18] [place]-3 Fatty Acids [Fish Oil 1000 mg (*)] 1,000 mg PO DAILY 03/07/17 [Last Taken 08/13/18] Warfarin Sodium [Coumadin 5MG (*)] 2.5 mg PO MOWEFR@1600 03/07/17 [Last Taken ] Warfarin Sodium [Coumadin 5MG (*)] 5 mg PO SUTUTHSA@1600 03/07/17 [Last Taken ] Dofetilide [Tikosyn 0.25 MG (*)] 0.25 mg PO BID@0630,2100 08/13/18 [Last Taken 08/13/18 06:30] I have personally reviewed and updated: family history, medical history, social history, surgical history - Past Medical History atrial fibrillation, coronary artery disease, GERD, hypertension, hyperlipidemia , psychiatric history (anxiety) Additional medical history: 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 - Surgical History Reports: ablation - Family History Positive for: non-pertinent - Social History Smoking Status: Former smoker Alcohol Use: Rarely Drug Use: None Additional social history: , active Review of Systems Review of Systems: ROS: 10pt was reviewed & negative except for what was stated in HPI & below Physical Exam Physical Exam: Temp Pulse Resp BP Pulse Ox 36.6 C 68 20 163/107 H 92 08/13/18 18:20 08/13/18 18:20 08/13/18 18:20 08/13/18 18:20 08/13/18 18:20 Constitutional: no apparent distress, appears nourished Eyes: PERRL, anicteric sclera Ears, Nose, Mouth, Throat: moist mucous membranes, hearing normal Cardiovascular: regular rate and rhythym, no murmur, rub, or gallop, No edema Respiratory: no respiratory distress, no rales or rhonchi, clear to auscultation Gastrointestinal: normoactive bowel sounds, soft, non-tender abdomen Genitourinary: no bladder tenderness Skin: warm, normal color Musculoskeletal: full muscle strength Neurologic: AAOx3 Psychiatric: interacting appropriately, not anxious, not encephalopathic Lab Data & Imaging Review 08/13/18 15:40 08/13/18 16:08 WBC 7.32 10^3/uL (3.80-9.50) 08/13/18 15:40 RBC 3.86 10^6/uL (4.40-6.38) L 08/13/18 15:40 Hgb 13.1 g/dL (13.7-17.5) L 08/13/18 15:40 Hct 37.9 % (40.0-51.0) L 08/13/18 15:40 MCV 98.2 fL (81.5-99.8) 08/13/18 15:40 MCH 33.9 pg (27.9-34.1) 08/13/18 15:40 MCHC 34.6 g/dL (32.4-36.7) 08/13/18 15:40 RDW 13.5 % (11.5-15.2) 08/13/18 15:40 Plt Count 187 10^3/uL (150-400) 08/13/18 15:40 MPV 9.9 fL (8.7-11.7) 08/13/18 15:40 Neut % (Auto) 76.2 % (39.3-74.2) H 08/13/18 15:40 Lymph % (Auto) 12.0 % (15.0-45.0) L 08/13/18 15:40 [place] % (Auto) 8.6 % (4.5-13.0) 08/13/18 15:40 Eos % (Auto) 2.5 % (0.6-7.6) 08/13/18 15:40 Baso % (Auto) 0.4 % (0.3-1.7) 08/13/18 15:40 Nucleat RBC Rel Count 0.0 % (0.0-0.2) 08/13/18 15:40 Absolute Neuts (auto) 5.58 10^3/uL (1.70-6.50) 08/13/18 15:40 Absolute Lymphs (auto) 0.88 10^3/uL (1.00-3.00) L 08/13/18 15:40 Absolute Monos (auto) 0.63 10^3/uL (0.30-0.80) 08/13/18 15:40 Absolute Eos (auto) 0.18 10^3/uL (0.03-0.40) 08/13/18 15:40 Absolute Basos (auto) 0.03 10^3/uL (0.02-0.10) 08/13/18 15:40 Absolute Nucleated RBC 0.00 10^3/uL (0-0.01) 08/13/18 15:40 Immature Gran % 0.3 % (0.0-1.1) 08/13/18 15:40 Immature Gran # 0.02 10^3/uL (0.00-0.10) 08/13/18 15:40 PT 26.8 SEC (12.0-15.0) H 08/13/18 16:08 INR 2.63 (0.83-1.16) H 08/13/18 16:08 APTT 39.2 SEC (23.0-38.0) H 08/13/18 16:08 Sodium 138 mEq/L (135-145) 08/13/18 16:08 Potassium 4.5 mEq/L (3.5-5.2) 08/13/18 16:08 Chloride 106 mEq/L (97-110) 08/13/18 16:08 Carbon Dioxide 25 mEq/l (22-31) 08/13/18 16:08 Anion Gap 7 mEq/L (6-14) 08/13/18 16:08 BUN 22 mg/dL (7-23) 08/13/18 16:08 Creatinine 1.1 mg/dL (0.7-1.3) 08/13/18 16:08 Estimated GFR > 60 08/13/18 16:08 Glucose 89 mg/dL (70-100) 08/13/18 16:08 Calcium 8.8 mg/dL (8.5-10.4) 08/13/18 16:08 POC Troponin I 0.00 ng/mL (0.00-0.08) 08/13/18 15:43 Visualized and Interpreted EKG results: Yes EKG Interpretation: Positive for: normal sinsus rhythm Assessment & Plan Assessment: Confusion (Acute) Weakness (Acute) 78 yo M with PMH of a fib, VHD, CAD presenting with exertional lightheadedness and weakness similar to prior bouts of a fib # exertional weakness/lightheadedness: completely resolved currently and consistent with his prior episodes of a fib. No sxs to suggest infection, no focal neurologic sxs, no chest pain. Concerning for cardiac arrhythmia, particularly a fib given history, but currently appears in SR. Will monitor on tele, will ask cardiology to evaluate particularly given patients upcoming plan to drive across country in the coming weeks. Patient had echo in February without significant pathology--will defer repeat echo for now # a fib: as above, tele, trops, cardiology eval. INR therapeutic, continue coumadin. Continued on tikosyn # VHD: wth moderate MR in February, will defer repeat echo for now pending cardiology evaluation # anxiety/depression: hx of panic attack but none currently, continue prozac # CAD: continue statin, asa and eval as above # observation status Patient new to my care. Old records reviewed and summarized as above. Care plan reviewed with ER doctor, further hx obtained from present at bedside.
[2018-08-13] MEDS ORDERED: ASPIRIN EC 81 MG TAB PO SCH (21:00)
[2018-08-13] MEDS ORDERED: ATORVASTATIN CALCIUM 10 MG TAB PO SCH (21:00)
[2018-08-13] MEDS ORDERED: DOFETILIDE 0.25 MG CAP PO SCH (21:00)
--- NOTE | 2018-08-13 21:34 | CPEKG ---
Test Reason : OPEN Blood Pressure : / mmHG Vent. Rate : 060 BPM Atrial Rate : 060 BPM P-R Int : 172 ms QRS Dur : 111 ms QT Int : 553 ms P-R-T Axes : 041 242 000 degrees QTc Int : 553 ms Sinus rhythm LAD, consider left anterior fascicular block Low voltage, extremity leads Nonspecific T abnrm, anterolateral leads Prolonged QT interval Confirmed by Ricardo Griffin ([id number]) on 08/13/2018 9:34:23 PM Referred By: Ricardo Griffin Confirmed By:Ricardo Griffin
[2018-08-13] MEDS ORDERED: WARFARIN SODIUM 5 MG TAB PO SCH (22:15)
[2018-08-13] MEDS: DOFETILIDE 0.25 MG CAP PO SCH (23:19)
[2018-08-14 06:36] LABS: PLATELET COUNT 194 10^3/uL (150-400)
[2018-08-14] MEDS: DOFETILIDE 0.25 MG CAP PO SCH (08:25)
[2018-08-14] MEDS ORDERED: CHOLECALCIFEROL VIT D3 2,000 UNITS TAB/CAP PO SCH (09:00)
[2018-08-14] MEDS ORDERED: OMEGA-3 FATTY ACIDS 1,000 MG CAP PO SCH (09:00)
--- NOTE | 2018-08-14 11:00 | HOSPPROG ---
Hospitalist Progress Note Assessment/Plan: 78 yo M w Af HERE W EXERTIONAL SX non ischemic ekg, neg trop no pauses on tele cardiology to see review recent stress test results Subjective: tele: no pause, no AF (interp by me). ekg sinus w no ischemic changes (interp by me) Objective: Vital Signs Temp Pulse Resp BP Pulse Ox 37.1 C 52 L 13 151/95 H 95 08/14/18 07:08 08/14/18 07:08 08/14/18 07:08 08/14/18 07:08 08/14/18 07:08 Laboratory Results 08/14/18 06:28 08/14/18 06:28 08/13/18 08/14/18 08/15/18 05:59 05:59 05:59 Intake Total 350 Balance 350 PT 26.8 SEC (12.0-15.0) H 08/13/18 16:08 INR 2.63 (0.83-1.16) H 08/13/18 16:08 - Physical Exam Constitutional: no apparent distress, appears nourished Eyes: PERRL, anicteric sclera Ears, Nose, Mouth, Throat: moist mucous membranes, hearing normal Cardiovascular: no murmur, rub, or gallop, systolic murmur Respiratory: no respiratory distress, no rales or rhonchi Gastrointestinal: normoactive bowel sounds, soft, non-tender abdomen Genitourinary: no bladder fullness, No pereira in urethra Skin: warm, normal color Musculoskeletal: full muscle strength ICD10 Worksheet Patient Problems: Problems Problem Status Onset Confusion Acute Weakness Acute Atrial fibrillation Acute
--- NOTE | 2018-08-14 11:59 | ASMTCMCOM ---
CM Note CM Note Notes: Pts case discussed in tx rounds. Pt is a 78 y/o man admitted for near syncope. CM met w/ pt and Ronel and introduced self. Pt lives independently. Pt reports that he is able to get himself to doctors appointment, groceries and attend to his ADLs. Pt does not need anything at this time. CM available for changes. Plan: Independent Date Signed: 08/14/2018 11:58 AM Electronically Signed By:STEPHANIE Law
[2018-08-14 12:20] VITALS: BP 155/99
--- NOTE | 2018-08-14 12:35 | PDCARPN ---
Cardiology Progress Note Assessment/Plan: Assessment/plan: 78-year-old male with paroxysmal atrial fibrillation. He had an AFib ablation in 2010 at [facility]. He is highly symptomatic when in AFib and is now on Tikosyn and warfarin. Other history includes moderate mitral regurgitation, non flow-limiting carotid disease and non flow-limiting coronary disease. He has nocturnal hypoxia for which she has declined therapy. He also significant anxiety and the only drug that works for his anxiety as Prozac. He was admitted yesterday with weakness, fatigue, and presyncope that occurred during hike. His symptoms have resolved. He is orthostatic by vital signs. Troponins have been negative. Brief PAT on telemetry, otherwise no significant arrhythmias. 1. Presyncope and weakness: The rhythm during his symptoms, according to his 's Apple watch, does appear to be sinus. However he is at risk for AFib and also at risk for VT given his prolonged QT. I think it is more likely that he has some element of autonomic dysfunction exacerbated by dehydration and therefore has low blood pressure when upright and also does not augment his heart rate appropriately. We discussed staying well hydrated, focusing on electrolyte repletion. I will reduce his Tikosyn 225 mcg twice daily to see if this improves his heart rate response slightly. I will have him wear a 48 hr Holter monitor in the outpatient setting and follow up with him in the office. He may ultimately need a pacemaker, but there was no clear class 1 indication for pacing at this time. We again discussed my concerns about the combination of Prozac and Tikosyn. He has previously tried to wean off Prozac with severe debilitating anxiety. This has previously been discussed by me with his psychiatrist as well. He and his verbalized understanding of the risks associated between Prozac and Tikosyn. I do not think this is a manifestation of cardiac ischemia given his negative troponins, stable EKG, and normal myocardial perfusion stress test a year ago. 2. Atrial fibrillation: He has been in sinus rhythm here. Reduce Tikosyn as above. Continue warfarin for CHADS2 Vasc score of 3. 3. Mitral regurgitation: This was moderate on February 2018 echo. No evidence of heart failure. I do not think his symptoms relate to valvular disease. Will need ongoing outpatient evaluation. 4. Hypertension: He is hypertensive when supine and relatively hypotensive upright. We will follow this. May consider Neurology evaluation out patient to evaluate for early Parkinson's/autonomic dysfunction. 5. Non flow-limiting carotid disease and non flow-limiting coronary disease: Continue aspirin statin. 6. History of mildly dilated ascending aorta at 3.8 cm. Follow on serial ECHO. 7. Anxiety: He is on Prozac. Please see #1. Case discussed with Dr. Starkey. Patient appears stable for discharge from a cardiac standpoint with follow-up as detailed above. 08/14/18 12:42 Subjective: Feels better. He has not had recurrent presyncope. No palpitations. No angina or dyspnea. He again described the episode yesterday that he felt extremely fatigued weak and lightheaded during hike. He had to sit down. He did not have actual loss of consciousness but apparently was acting confused. I reviewed tracings x2 from his 's Apple watch. His put her watch on him while he was having symptoms. The rhythm does appear to be sinus during this time. Reviewed/Discussed With: family, hospitalist (Dr. Starkey), multidisciplinary team Time Spent with Patient: greater than 25 minutes Time Spent with Patient: Greater than 25 minutes spent on this patients care, greater than 50% of time spent counseling, educating, and coordinating care regarding the above mentioned plan. Objective: Vital Signs (8 Hrs) Temp Pulse Resp BP Pulse Ox 08/14/18 07:08 37.1 C 52 L 13 151/95 H 95 08/14/18 04:00 36.8 C 77 17 161/106 H 93 Intake/Output (24 Hrs) 08/13/18 08/14/18 08/15/18 05:59 05:59 05:59 Intake Total 350 Balance 350 Intake: Oral (ml) 350 Other: Weight 79.379 kg No acute distress. Regular rate and rhythm with soft early systolic murmur at the left lower sternal border Lungs clear bilaterally wheeze rhonchi rales No lower extremity edema The patient had orthostatic vital signs during my visit. Please see vital signs. In summary, he did have approximately 40 point drop in his blood pressure from lying down to standing without significant increase in heart rate. He then ambulated in the angela with an augmentation of his heart rate into the mid 70s and a blood pressure of 155 post exercise no symptoms with any of this. Result Diagrams: 08/14/18 06:28 08/14/18 06:28 Cardiac Labs: Cardiac Lab Results (72 Hrs) 08/14/18 08/13/18 06:28 22:15 Troponin I < 0.012 < 0.012 EKG: EKG x2 reviewed and compared with prior EKG: Sinus rhythm with prolonged QT. Diffuse ST T-wave abnormalities unchanged from previous Telemetry: Sinus rhythm with PACs and PVCs. 1 short run of PAT yesterday evening ICD10 Worksheet Patient Problems: Problems Problem Status Onset Confusion Acute Weakness Acute Atrial fibrillation Acute
[2018-08-14] MEDS ORDERED: FLUoxetine 20 MG CAP PO SCH (13:00)
[2018-08-14] MEDS ORDERED: WARFARIN SODIUM 5 MG TAB PO SCH (16:00)
[2018-08-14] MEDS ORDERED: DOFETILIDE 0.125 MG CAP PO SCH (21:00)
--- NOTE | 2018-08-15 03:22 | GDS ---
[f rep st] DISCHARGE SUMMARY DISCHARGE DIAGNOSES: 1. Presyncope. 2. History of atrial fibrillation on dofetilide. 3. Chronotropic incompetence. Please see admission history and physical by Dr. Zach Rodriguez. The patient presented with exercis e intolerance. While working he developed chest pain. They have checked his pulse at that time. It was felt to be "thready" and fast. We used an I-Watch type application that said it was not atrial f ibrillation. The veracity of this is of course uncertain. He has a history of a stress test about a year ago that was unremarkable. He did not have chest pain. He does not have a history of anginal symptoms and he had a nonischemic EKG and negative troponins. He had no events on telemetry. 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 Delvalle. Discharged home on unchanged medication regimen. /[id number]/MODL
--- NOTE | 2018-08-15 13:12 | CPEKG ---
Test Reason : OPEN Blood Pressure : / mmHG Vent. Rate : 059 BPM Atrial Rate : 059 BPM P-R Int : 177 ms QRS Dur : 110 ms QT Int : 489 ms P-R-T Axes : 072 261 -74 degrees QTc Int : 485 ms Sinus rhythm Left anterior fascicular block Low voltage, extremity leads Borderline prolonged QT interval Confirmed by Jeferson Mccain ([id number]) on 08/15/2018 1:12:21 PM Referred By: Zach Rodriguez Confirmed By:Jeferson Mccain
== END 2018-08-14 15:29 | disposition home or self-care (01) ==
LOC: F2W 18:05
PROVIDERS: ADMIT Internal Medicine; ATTEND Internal Medicine
DX: R55 Syncope and collapse (principal); R03.0 Elevated blood-pressure reading, without diagnosis of hypertension; I48.91 Unspecified atrial fibrillation; I45.89 Other specified conduction disorders; I34.0 Nonrheumatic mitral (valve) insufficiency; I77.9 Disorder of arteries and arterioles, unspecified; I71.2 Thoracic aortic aneurysm, without rupture; F41.9 Anxiety disorder, unspecified
CPT/HCPCS: 93005; 99285; G0378; 84484-ER

== ENCOUNTER → 2018-08-18 | Outpatient (CLI) | payer OTHER | LOC: BHFA 16:00 | PROVIDERS: ATTEND Internal Medicine Cardiovascular Disease | DX: R55 Syncope and collapse (principal) ==